=== PATIENT | male | born 1980 | race Caucasian/White ===

== ENCOUNTER 2019-04-22 15:08 | Emergency (ER) | payer OTHER ==
[~2019-04-22] VITALS: Ht 188 cm; Wt 95.3 kg
[2019-04-22 15:20] VITALS: BP 148/85
[2019-04-22] MEDS: IBUPROFEN 800 MG TAB PO ONE (16:38)
[2019-04-22] MEDS: HYDROcodone/APAP 5/325 MG 1 TAB TAB PO ONE (16:39)
[2019-04-22 18:53] VITALS: BP 130/91
== END 2019-04-22 18:50 | disposition home or self-care (01) ==
LOC: MED 15:08
DX: S60.221A Contusion of right hand, initial encounter (principal); W23.1XXA Caught, crushed, jammed, or pinched between stationary objects, initial encounter; Y92.89 Other specified places as the place of occurrence of the external cause; Y93.89 Activity, other specified; Y99.8 Other external cause status
CPT/HCPCS: 29125; 73130; 99283; Q0092